=== PATIENT | female | born 1980 ===

== ENCOUNTER → 2017-07-04 | Outpatient (CLI) | payer OTHER ==
[2017-07-04 11:20] LABS: BASOPHILS % (AUTO) 1 % (0-10); EOSINOPHILS # (AUTO) 0.1 10^3/uL (0.0-0.3); EOSINOPHILS % (AUTO) 2 % (0-10); HEMATOCRIT 41 % (35-52); HEMOGLOBIN 13.7 G/DL (11.5-16.0); LYMPHOCYTES # (AUTO) 2.6 X 10^3 (1.0-4.0); LYMPHOCYTES % (AUTO) 37 % (12-44); MEAN CORPUSCULAR HEMOGLOBIN 31 PG (25-34); MEAN CORPUSCULAR HGB CONC 34 G/DL (32-36); MEAN CORPUSCULAR VOLUME 90 FL (80-99); MEAN PLATELET VOLUME 11.3 FL (7.4-10.4); MONOCYTES # (AUTO) 0.5 X 10^3 (0.0-1.0); MONOCYTES % (AUTO) 7 % (0-12); NEUTROPHILS # (AUTO) 3.9 X 10^3 (1.8-7.8); NEUTROPHILS % (AUTO) 54 % (42-75); PLATELET COUNT 261 10^3/uL (130-400); RED BLOOD COUNT 4.49 10^6/uL (4.35-5.85); RED CELL DISTRIBUTION WIDTH 13.1 % (10.0-14.5); WHITE BLOOD COUNT 7.1 10^3/uL (4.3-11.0)
[2017-07-04 11:43] LABS: ALANINE AMINOTRANSFERASE 18 U/L (0-55); ALBUMIN 4.1 GM/DL (3.2-4.5); ALKALINE PHOSPHATASE 68 U/L (40-136); BILIRUBIN,TOTAL 0.3 MG/DL (0.1-1.0); BUN/CREATININE RATIO 16; CALCIUM 9.3 MG/DL (8.5-10.1); CARBON DIOXIDE 28 MMOL/L (21-32); CHLORIDE 106 MMOL/L (98-107); CREATININE SERUM 0.62 MG/DL (0.60-1.30); GFR ESTIMATED > 60; GLUCOSE 88 MG/DL (70-105); POTASSIUM 3.9 MMOL/L (3.6-5.0); SODIUM 139 MMOL/L (135-145); TOTAL PROTEIN 7.6 GM/DL (6.4-8.2)
== END ==
LOC: LAB 11:05
PROVIDERS: ATTEND Specialist
DX: Z51.81 Encounter for therapeutic drug level monitoring (principal); Z79.899 Other long term (current) drug therapy
CPT/HCPCS: 36415; 80053; 85025

== ENCOUNTER 2018-09-14 14:25 | Outpatient (CLI) | payer OTHER ==
[~2018-09-14] VITALS: Ht 157.5 cm; Wt 82.6 kg
--- NOTE | 2018-09-14 14:10 | NUR ---
BETZAIDA PADILLA presented to unit via CART from ED, accompanied by [facility], with c/o ABD PAIN. BETZAIDA PADILLA to bed. EFHM and TOCO applied, VS taken. BETZAIDA PADILLA oriented to bed controls, call light, TV, heat, and A/C controls.
[2018-09-14 14:21] VITALS: BP 115/56
[2018-09-14] MEDS ORDERED: D5 LR IV SOLUTION 1,000 ML IV SCH (14:45)
[2018-09-14] MEDS ORDERED: fentaNYL INJECTION 100 MCG/2 ML AMP ONE (14:49)
[2018-09-14] MEDS ORDERED: D5 LR IV SOLUTION 1,000 ML IV ONE (14:56)
[2018-09-14 14:57] LABS: HEMOGLOBIN 10.3 G/DL (11.5-16.0); MEAN PLATELET VOLUME 11.1 FL (7.4-10.4); RED CELL DISTRIBUTION WIDTH 12.7 % (10.0-14.5)
[2018-09-14 14:57] LABS: BILIRUBIN,URINE NEGATIVE (NEGATIVE); CLARITY,URINE CLEAR; COLOR,URINE YELLOW; GLUCOSE, URINE (UA) NEGATIVE (NEGATIVE); KETONES,URINE NEGATIVE (NEGATIVE); LEUKOCYTE ESTERASE ,URINE NEGATIVE (NEGATIVE); NITRITE,URINE NEGATIVE (NEGATIVE); PH,URINE 8 (5-9); PROTEIN,URINE NEGATIVE (NEGATIVE); UROBILINOGEN,URINE NORMAL (NORMAL)
[2018-09-14] MEDS ORDERED: fentaNYL INJECTION 100 MCG/2 ML AMP IVP ONE (15:00)
[2018-09-14 15:17] LABS: ALANINE AMINOTRANSFERASE 20 U/L (0-55); ALBUMIN 3.5 GM/DL (3.2-4.5); ALKALINE PHOSPHATASE 70 U/L (40-136); BILIRUBIN,TOTAL 0.1 MG/DL (0.1-1.0); BUN/CREATININE RATIO 9; CALCIUM 8.8 MG/DL (8.5-10.1); CARBON DIOXIDE 20 MMOL/L (21-32); CHLORIDE 109 MMOL/L (98-107); CREATININE SERUM 0.56 MG/DL (0.60-1.30); GFR ESTIMATED > 60; GLUCOSE 96 MG/DL (70-105); POTASSIUM 3.4 MMOL/L (3.6-5.0); SODIUM 139 MMOL/L (135-145); TOTAL PROTEIN 6.6 GM/DL (6.4-8.2)
[2018-09-14 15:19] LABS: BACTERIA,URINE NEGATIVE /HPF; SQUAMOUS EPITHELIAL CELL,UR RARE /HPF
[2018-09-14 16:07] VITALS: BP 102/58
--- NOTE | 2018-09-14 16:46 | Diagnostic Imaging Report ---
INDICATION: patient with abdominal pain. FINDINGS: Limited OB sonography was performed per request. A single live intrauterine fetus is seen with a heart rate of 140 BPM. The fetus is in breech presentation. The placenta is posterior. The cervical length is 2.6 cm. There is no evidence of abruption. There are heterogeneous areas seen in the placenta which may be placental lakes and appeared stable on imaging 15 minutes later. IMPRESSION: Single live intrauterine fetus with a heart rate of 140 BPM. The fetus is in breech presentation. There is some mild inhomogeneity of the placenta which is of questionable significance. The cervical length appears mildly foreshortened at 2.6 cm. Dictated by: Dictated on workstation # [id number]
--- NOTE | 2018-09-14 17:09 | Short Stay Summary ---
HPI History of Present Illness: 37-year-old multigravida who presents at 26 weeks gestation with pelvic pressure. She reports quite a bit of pain and upon presentation by EMS she was writhing in pain. On the floor most of her pain is in the ligamentous area. She has had an uneventful care course thus far through [facility]. Source: patient, family Exam Limitations: clinical condition Date seen by provider: Sep 14, 2018 Time Seen by Provider: 06:45 Attending Physician Sagar Arthur MD PCP No,Local Physician Consult Date of Admission Home Medications Home Medications Reviewed patient Home Medication Reconciliation performed by pharmacy medication reconciliations avionics technician and/or nursing. Patients Allergies have been reviewed. Allergies Uncoded Allergies: pcn (Allergy, Unknown, 09/14/18) YQH-Zkoplr-Mpiwaa Hx Patient Social History Marrital Status: Recent Foreign Travel: No Contact w/other who traveled: No Recent Infectious Disease Expo: No Physical Abuse Screen: No Sexual Abuse: No Review of Systems (CHC) Constitutional: see HPI Reviewed Test Results Reviewed Test Results Lab Laboratory Tests Test 09/14/18 14:30 09/14/18 14:40 Range/Units Urine Color YELLOW Urine Clarity CLEAR Urine pH 8 5-9 Urine Specific [place] 1.015 L 1.016-1.022 Urine Protein NEGATIVE NEGATIVE Urine Glucose (UA) NEGATIVE NEGATIVE Urine Ketones NEGATIVE NEGATIVE Urine Nitrite NEGATIVE NEGATIVE Urine Bilirubin NEGATIVE NEGATIVE Urine Urobilinogen NORMAL NORMAL MG/DL Urine Leukocyte Esterase NEGATIVE NEGATIVE Urine RBC (Auto) NEGATIVE NEGATIVE Urine RBC NONE /HPF Urine WBC NONE /HPF Urine Squamous Epithelial Cells RARE /HPF Urine Crystals NONE /LPF Urine Bacteria NEGATIVE /HPF Urine Casts NONE /LPF Urine Mucus NEGATIVE /LPF Urine Culture Indicated NO White Blood Count 12.0 H 4.3-11.0 10^3/uL Red Blood Count 3.46 L 4.35-5.85 10^6/uL Hemoglobin 10.3 L 11.5-16.0 G/DL Hematocrit 31 L 35-52 % Mean Corpuscular Volume 91 80-99 FL Mean Corpuscular Hemoglobin 30 25-34 PG Mean Corpuscular Hemoglobin Concent 33 32-36 G/DL Red Cell Distribution Width 12.7 10.0-14.5 % Platelet Count 266 130-400 10^3/uL Mean Platelet Volume 11.1 H 7.4-10.4 FL Sodium Level 139 135-145 MMOL/L Potassium Level 3.4 L 3.6-5.0 MMOL/L Chloride Level 109 H 98-107 MMOL/L Carbon Dioxide Level 20 L 21-32 MMOL/L Anion Gap 10 5-14 MMOL/L Blood Urea Nitrogen 5 L 7-18 MG/DL Creatinine 0.56 L 0.60-1.30 MG/DL Estimat Glomerular Filtration Rate > 60 BUN/Creatinine Ratio 9 Glucose Level 96 70-105 MG/DL Calcium Level 8.8 8.5-10.1 MG/DL Corrected Calcium 9.2 8.5-10.1 MG/DL Total Bilirubin 0.1 0.1-1.0 MG/DL Aspartate Amino Transf (AST/SGOT) 16 5-34 U/L Alanine Aminotransferase (ALT/SGPT) 20 0-55 U/L Alkaline Phosphatase 70 40-136 U/L Total Protein 6.6 6.4-8.2 GM/DL Albumin 3.5 3.2-4.5 GM/DL Radiology [place], [place] NAME: BETZAIDA PADILLA [facility] REC#: [id number] PT STATUS: REG CLI : 1980 PHYSICIAN: SAGAR ARTHUR MD ADMIT DATE: 09/14/18/[facility] Draft Date of Exam:09/14/18 US LIMITED [id number] INDICATION: patient with abdominal pain. FINDINGS: Limited OB sonography was performed per request. A single live intrauterine fetus is seen with a heart rate of 140 BPM. The fetus is in breech presentation. The placenta is posterior. The cervical length is 2.6 cm. There is no evidence of abruption. There are heterogeneous areas seen in the placenta which may be placental lakes and appeared stable on imaging 15 minutes later. IMPRESSION: Single live intrauterine fetus with a heart rate of 140 BPM. The fetus is in breech presentation. There is some mild inhomogeneity of the placenta which is of questionable significance. The cervical length appears mildly foreshortened at 2.6 cm. Dictated on workstation # [id number] Dict: 09/14/18 1631 Trans: 09/14/18 1646 [id number] Interpreted by: BELINDA GARCIA MD Electronically signed by: Physical Exam-(CHC) Physical Exam Vital Signs Capillary Refill : General Appearance: mild distress Respiratory: lungs clear Cardiovascular: regular rate, rhythm Gastrointestinal: soft (She does have tenderness along the lower pelvic ligament region) Comments Cervix check by nurse revealed fingertip dilation and otherwise thick and ballotable presenting part Short Stay Diagnosis Discharge Diagnosis-Short Stay Admission Diagnosis 1. Intrauterine at 26 weeks gestation 2. Pelvic pain and this appears to be ligamentous 3. Breech presentation Final Discharge Diagnosis 1. Intrauterine at 26 weeks gestation 2. Pelvic pain and this appears to be ligamentous 3. Breech presentation Conclusion Plan At this time patient has had CBC, chem 14, catheter urinalysis performed. The laboratory and urine appear reassuring. Her ultrasound does not reveal abruption. She has received fentanyl 25 mg IV and this has relieved a lot of her pain. Was the Problem List Reviewed?: Yes Assessment/Plan Assessment/Plan Admission Status: Observation SAGAR ARTHUR MD Sep 14, 2018 17:09
[2018-09-14 18:20] VITALS: BP 105/53
--- NOTE | 2018-09-14 18:55 | NUR ---
DISCHARGE PAPERS PROVIDED AND REVIEWED WITH PT, PT VERBALIZES UNDERSTANDING AND DENIES ANY QUESTIONS AT THIS TIME. S/O AT THE BEDSIDE. PAPER SIGNED.
--- NOTE | 2018-09-14 19:00 | NUR ---
PT DISCHARGED FROM [facility] TO [facility] VIA AMBULATORY IN STABLE CONDITION ACC BY S/O.
== END 2018-09-14 19:00 | disposition home or self-care (01) ==
LOC: LDRP 14:25 → WSo 14:25
PROVIDERS: ATTEND Family Medicine
DX: O99.89 Other specified diseases and conditions complicating pregnancy, childbirth and the puerperium (principal); R10.2 Pelvic and perineal pain; O32.1XX0 Maternal care for breech presentation, not applicable or unspecified; Z3A.26 26 weeks gestation of pregnancy
CPT/HCPCS: 36415; 76815; 80053; 81000; 85027; 87088; 96361; 96374; 99213

== ENCOUNTER → 2019-05-21 | Outpatient (CLI) | payer OTHER ==
[2019-05-21 12:08] LABS: BASOPHILS % (AUTO) 1 % (0-10); EOSINOPHILS # (AUTO) 0.1 10^3/uL (0.0-0.3); EOSINOPHILS % (AUTO) 2 % (0-10); HEMATOCRIT 39 % (35-52); HEMOGLOBIN 12.6 G/DL (11.5-16.0); LYMPHOCYTES # (AUTO) 2.1 X 10^3 (1.0-4.0); LYMPHOCYTES % (AUTO) 32 % (12-44); MEAN CORPUSCULAR HEMOGLOBIN 29 PG (25-34); MEAN CORPUSCULAR HGB CONC 33 G/DL (32-36); MEAN CORPUSCULAR VOLUME 90 FL (80-99); MEAN PLATELET VOLUME 10.8 FL (7.4-10.4); MONOCYTES # (AUTO) 0.4 X 10^3 (0.0-1.0); MONOCYTES % (AUTO) 7 % (0-12); NEUTROPHILS # (AUTO) 3.7 X 10^3 (1.8-7.8); NEUTROPHILS % (AUTO) 59 % (42-75); PLATELET COUNT 263 10^3/uL (130-400); RED CELL DISTRIBUTION WIDTH 13.3 % (10.0-14.5); WHITE BLOOD COUNT 6.4 10^3/uL (4.3-11.0)
[2019-05-21 12:36] LABS: ALANINE AMINOTRANSFERASE 25 U/L (0-55); ALKALINE PHOSPHATASE 110 U/L (40-136); BILIRUBIN,TOTAL 0.2 MG/DL (0.1-1.0); BUN/CREATININE RATIO 13; CALCIUM 9.3 MG/DL (8.5-10.1); CARBON DIOXIDE 22 MMOL/L (21-32); CHLORIDE 106 MMOL/L (98-107); GFR ESTIMATED > 60; GLUCOSE 99 MG/DL (70-105); POTASSIUM 3.7 MMOL/L (3.6-5.0); SODIUM 139 MMOL/L (135-145); TOTAL PROTEIN 7.3 GM/DL (6.4-8.2)
== END ==
LOC: LAB 11:48
PROVIDERS: ATTEND Specialist
DX: Z79.899 Other long term (current) drug therapy (principal)
CPT/HCPCS: 36415; 80053; 80183; 85025

== ENCOUNTER 2020-03-03 12:03 | Inpatient (IN) | payer OTHER ==
[2020-03-03] VITALS (7 sets, daily range): BP systolic 102–144; BP diastolic 57–98
[~2020-03-03] VITALS: Ht 158 cm; Wt 73.2 kg
--- NOTE | 2020-03-03 12:34 | ED Cough/URI ---
General Chief Complaint: Respiratory Problems Stated Complaint: SOB Source: patient Exam Limitations: no limitations History of Present Illness Date Seen by Provider: Mar 03, 2020 Time Seen by Provider: 12:32 Initial Comments To ER with reports of fever and shortness of breath. She is known to have Covid and tested positive on Thanksgiving. For the past 3 days she has had cough and shortness of breath. Timing/Duration: constant Severity/Quality: dry cough Associated Symptoms: cough, fever/chills, shortness of breath Allergies and Home Medications Allergies Uncoded Allergies: pcn (Allergy, Unknown, 09/14/18) Home Medications No Active Prescriptions or Reported Meds Patient Home Medication List Home Medication List Reviewed: Yes Review of Systems Review of Systems Constitutional: see HPI, chills, fever, malaise, weakness EENTM: see HPI Respiratory: see HPI, cough, dyspnea on exertion, short of breath Genitourinary: no symptoms reported Musculoskeletal: no symptoms reported Skin: no symptoms reported Psychiatric/Neurological: No Symptoms Reported Hematologic/Lymphatic: No Symptoms Reported Past Hsmwrij-Nqakpb-Dkrcte Hx Patient Social History Alcohol Use: Denies Use Recreational Drug Use: No Smoking Status: Never a Smoker 2nd Hand Smoke Exposure: No Recent Hopitalizations: No Seasonal Allergies Seasonal Allergies: No Past Medical History Surgeries: Yes Gallbladder Respiratory: No Cardiac: No Neurological: No Hx : 5 Hx Para: 4 Hx Total # of Abortions (Sp): 1 Female Reproductive Disorders: Denies Sexually Transmitted Disease: No HIV/AIDS: No Genitourinary: No Gastrointestinal: No Musculoskeletal: No Endocrine: No HEENT: No Cancer: No Psychosocial: No Integumentary: No Blood Disorders: No Adverse Reaction/Blood Tranf: No Physical Exam Vital Signs - First Documented 03/03/20 12:15 Temp 38.3 Pulse 134 Resp 24 B/P (MAP) 144/98 (113) O2 Delivery Room Air Capillary Refill : Height: 5'2.00" Weight: 182lbs. 0.0oz. [id number]; 33.3 BMI Method: General Appearance: WD/WN, mild distress (Tachypneic with a respiratory rate near 30, oxygen saturation 92% on room air which did increase to 96% after resting) HEENT: PERRL/EOMI, normal ENT inspection Neck: non-tender, full range of motion Respiratory: no respiratory distress, no accessory muscle use, decreased breath sounds Cardiovascular: no murmur, tachycardia Gastrointestinal: normal bowel sounds, non tender, soft Extremities: normal range of motion, normal inspection Neurologic/Psychiatric: alert, normal mood/affect, oriented x 3 Skin: normal color, warm/dry Progress/Results/Core Measures Suspected Sepsis SIRS Temperature: Pulse: Respiratory Rate: Laboratory Tests 03/03/20 12:20: White Blood Count 6.4 Blood Pressure / Mean: Laboratory Tests 03/03/20 12:20: Creatinine 0.75, Platelet Count 158, Total Bilirubin 0.2 Results/Orders Lab Results Laboratory Tests Test 03/03/20 12:20 03/03/20 12:34 Range/Units White Blood Count 6.4 4.3-11.0 10^3/uL Red Blood Count 4.69 3.80-5.11 10^6/uL Hemoglobin 14.1 11.5-16.0 g/dL Hematocrit 43 35-52 % Mean Corpuscular Volume 92 80-99 fL Mean Corpuscular Hemoglobin 30 25-34 pg Mean Corpuscular Hemoglobin Concent 33 32-36 g/dL Red Cell Distribution Width 12.8 10.0-14.5 % Platelet Count 158 130-400 10^3/uL Mean Platelet Volume 11.6 9.0-12.2 fL Immature Granulocyte % (Auto) 0 % Neutrophils (%) (Auto) 58 42-75 % Lymphocytes (%) (Auto) 36 12-44 % Monocytes (%) (Auto) 5 0-12 % Eosinophils (%) (Auto) 0 0-10 % Basophils (%) (Auto) 0 0-10 % Neutrophils # (Auto) 3.7 1.8-7.8 10^3/uL Lymphocytes # (Auto) 2.3 1.0-4.0 10^3/uL Monocytes # (Auto) 0.3 0.0-1.0 10^3/uL Eosinophils # (Auto) 0.0 0.0-0.3 10^3/uL Basophils # (Auto) 0.0 0.0-0.1 10^3/uL Immature Granulocyte # (Auto) 0.0 0.0-0.1 10^3/uL D-Dimer 0.88 H 0.00-0.49 UG/ML Sodium Level 139 135-145 MMOL/L Potassium Level 3.2 L 3.6-5.0 MMOL/L Chloride Level 103 98-107 MMOL/L Carbon Dioxide Level 22 21-32 MMOL/L Anion Gap 14 5-14 MMOL/L Blood Urea Nitrogen 8 7-18 MG/DL Creatinine 0.75 0.60-1.30 MG/DL Estimat Glomerular Filtration Rate > 60 BUN/Creatinine Ratio 11 Glucose Level 122 H 70-105 MG/DL Calcium Level 8.9 8.5-10.1 MG/DL Corrected Calcium 8.9 8.5-10.1 MG/DL Total Bilirubin 0.2 0.1-1.0 MG/DL Aspartate Amino Transf (AST/SGOT) 32 5-34 U/L Alanine Aminotransferase (ALT/SGPT) 42 0-55 U/L Alkaline Phosphatase 131 40-136 U/L Total Protein 8.0 6.4-8.2 GM/DL Albumin 4.0 3.2-4.5 GM/DL Serum Test, Qualitative NEGATIVE NEGATIVE Coronavirus 2019 (MICHELLE) Positive H Negative My Orders Orders - ARIK YI REGISTERED ACCOUNT ADMINISTRATOR Cbc With Automated Diff (03/03/20 12:31) Comprehensive Metabolic Panel (03/03/20 12:31) Procalcitonin (Pct) (03/03/20 12:31) Fibrin Degradation Products (03/03/20 12:31) Chest 1 View, Ap/Pa Only (03/03/20 12:31) Ed Iv/Invasive Line Start (03/03/20 12:31) Hcg,Qualitative Serum (03/03/20 12:31) Ns Iv 500 Ml (Sodium Chloride 0.9%) (03/03/20 12:45) Ibuprofen Tablet (Motrin Tablet) (03/03/20 12:45) Ondansetron Injection (Zofran Injectio (03/03/20 12:45) Type And Screen (03/03/20 12:31) Covid 19 Inhouse Test (03/03/20 12:34) Ct Angio Chest W (03/03/20 13:03) Iohexol Injection (Omnipaque 350 Mg/Ml 1 (03/03/20 13:15) Received Contrast (Hold Metformin- Contr (03/03/20 13:15) Sodium Chloride Flush (Catheter Flush Sy (03/03/20 13:15) Ns (Ivpb) (Sodium Chloride 0.9% Ivpb Bag (03/03/20 13:15) Medications Given in ED Current Medications Medications Dose Ordered Sig/Calin Route Start Time Stop Time Status Last Admin Dose Admin Ibuprofen 800 mg ONCE ONCE PO 03/03/20 12:45 03/03/20 12:46 DC 03/03/20 12:40 800 MG Ondansetron HCl 8 mg ONCE ONCE IVP 03/03/20 12:45 03/03/20 12:46 DC 03/03/20 12:40 8 MG Vital Signs/I&O 03/03/20 03/03/20 12:15 12:40 Temp 38.3 38.3 Pulse 134 Resp 24 B/P (MAP) 144/98 (113) O2 Delivery Room Air Capillary Refill : Departure Impression Primary Impression: COVID-19 Additional Impression: Respiratory distress Disposition: ADMITTED INPATIENT Condition: Stable Admissions Decision to Admit Reason: Admit from ER (General) Decision to Admit/Date: Mar 03, 2020 Time/Decision to Admit Time: 12:33 Departure-Patient Inst. Referrals: NO,LOCAL PHYSICIAN (PCP/Family) Primary Care Physician Scripts No Active Prescriptions or Reported Meds ARIK YI APRN Mar 03, 2020 12:34
[2020-03-03 12:38] LABS: BASOPHILS % (AUTO) 0 % (0-10); EOSINOPHILS % (AUTO) 0 % (0-10); HEMATOCRIT 43 % (35-52); HEMOGLOBIN 14.1 g/dL (11.5-16.0); LYMPHOCYTES # (AUTO) 2.3 10^3/uL (1.0-4.0); LYMPHOCYTES % (AUTO) 36 % (12-44); MEAN CORPUSCULAR HEMOGLOBIN 30 pg (25-34); MEAN CORPUSCULAR HGB CONC 33 g/dL (32-36); MEAN CORPUSCULAR VOLUME 92 fL (80-99); MEAN PLATELET VOLUME 11.6 fL (9.0-12.2); MONOCYTES # (AUTO) 0.3 10^3/uL (0.0-1.0); MONOCYTES % (AUTO) 5 % (0-12); NEUTROPHILS # (AUTO) 3.7 10^3/uL (1.8-7.8); NEUTROPHILS % (AUTO) 58 % (42-75); PLATELET COUNT 158 10^3/uL (130-400); WHITE BLOOD COUNT 6.4 10^3/uL (4.3-11.0)
[2020-03-03 12:44] LABS: CHLORIDE 103 MMOL/L (98-107); POTASSIUM 3.2 MMOL/L (3.6-5.0); SODIUM 139 MMOL/L (135-145)
[2020-03-03 12:45] LABS: CALCIUM 8.9 MG/DL (8.5-10.1)
[2020-03-03] MEDS ORDERED: ONDANSETRON 4 MG/2 ML (SDV) Z0FRAN IVP ONE (12:45)
[2020-03-03] MEDS ORDERED: IBUPROFEN 800 MG (MOTRIN) TAB PO ONE (12:45)
[2020-03-03] MEDS ORDERED: NS IV 500 ML 500 ML IV SCH (12:45)
[2020-03-03 12:46] LABS: GLUCOSE 122 MG/DL (70-105)
[2020-03-03 12:47] LABS: CARBON DIOXIDE 22 MMOL/L (21-32)
[2020-03-03 12:48] LABS: BILIRUBIN,TOTAL 0.2 MG/DL (0.1-1.0)
[2020-03-03 12:50] LABS: ALKALINE PHOSPHATASE 131 U/L (40-136); CREATININE SERUM 0.75 MG/DL (0.60-1.30); GFR ESTIMATED > 60
[2020-03-03 12:51] LABS: BUN/CREATININE RATIO 11
[2020-03-03 12:53] LABS: ALANINE AMINOTRANSFERASE 42 U/L (0-55)
--- NOTE | 2020-03-03 12:58 | Diagnostic Imaging Report ---
INDICATION: Cough. TECHNIQUE: Single view chest 12:54 PM. CORRELATION STUDY: None FINDINGS: Limited depth of inspiration. Given this, the heart size, mediastinum and vasculature within normal limits. Patchy infiltrate-like density in the left lung base is present. IMPRESSION: 1. Patchy infiltrate of the left lung base suspect for basilar pneumonia. Dictated by: Dictated on workstation # [id number]
[2020-03-03] MEDS ORDERED: CATHETER FLUSH 10 ML SYR IV PRN ×2 (13:15→14:45)
[2020-03-03] MEDS ORDERED: HOLD METFORMIN - RECEIVED CONTRAST 20 ML VIAL IV SCH (13:15)
[2020-03-03] MEDS ORDERED: NS 100 ML (IVPB) BAG IV ONE (13:15)
[2020-03-03] MEDS ORDERED: IOHEXOL 350 MG/ML 100 ML (OMNIPAQUE 350) VIAL IV ONE (13:15)
--- NOTE | 2020-03-03 14:10 | Diagnostic Imaging Report ---
EXAMINATION: CT angiography of the chest. TECHNIQUE: Contrast enhanced thin section helical images were obtained through the chest with intravenous contrast timed for the optimal opacification of the arterial structures per CTA protocol. Post-processing, reconstructions and interpretation of angiographic images of the vessels was performed. 3D MIP reconstructions were performed and reviewed. All CT scans use one or more of the following dose optimizing techniques: automated exposure control, MA and/or KvP adjustment based on a patient size and exam type, or iterative reconstruction. HISTORY: Cough, recent COVID-19. COMPARISON: None available. FINDINGS: There is no pulmonary embolism. There are multifocal areas of groundglass and consolidation most pronounced in the lower lobes but also present in the upper lobes. No pleural effusion. No pneumothorax. No suspicious nodules. There is no axillary or supraclavicular lymphadenopathy. There is no mediastinal lymphadenopathy. Heart size is normal. There are no coronary artery calcifications. No pericardial effusion. Aorta is normal in caliber. Limited views of the upper abdomen show pneumobilia and absent gallbladder. There are no suspicious osseous lesions. IMPRESSION: 1. No pulmonary embolism. 2. CT findings of pneumonia consistent with COVID-19 which are moderate in severity. 3. Pneumobilia, likely related to prior surgery. Dictated by: Dictated on workstation # [id number]
[2020-03-03] MEDS ORDERED: LACTATED RINGERS 1,000 ML IV SCH (14:45)
[2020-03-03] MEDS ORDERED: ENOXAPARIN 40 MG/0.4 ML (LOVENOX) SYR SC SCH (15:00)
--- NOTE | 2020-03-03 15:08 | History & Physical-Hospitalist ---
History of Present Illness HPI/Chief Complaint Pt is a 39yoCF with no known PMH who presented to the ER due to SOB. She was diagnosed with COVID on 02/23 and here symptoms progressed over the last three days with worsening SOB. On arrival she was 92% on room air but per ER she had significant increase in work of breath. She states other than her cough and SOB she has done well. No loss of taste or smell, nausea/vomiting, abd pain, diarrhea, constipation. She reports feeling better since arrival. She was consented for convalescent plasma in the ER. Source: patient Exam Limitations: language barrier Date Seen 03/03/20 Time Seen by a Provider: 15:11 Attending Physician Quynh Bob MD PCP No,Local Physician Referring Physician Date of Admission Mar 03, 2020 at 12:55 Home Medications & Allergies Home Medications Reviewed patient Home Medication Reconciliation performed by pharmacy medication reconciliations camera repair technician and/or nursing. Patients Allergies have been reviewed. Allergies Allergies Uncoded Allergies pcn ( Allergy, Unknown, 09/14/18) Past Fbxkdye-Ifwsxb-Vchuyp Hx Past Med/Social Hx: Reviewed Nursing Past Med/Soc Hx Patient Social History Alcohol Use: Denies Use Recreational Drug Use: No Smoking Status: Never a Smoker 2nd Hand Smoke Exposure: No Recent Foreign Travel: No Contact w/other who traveled: No Recent Hopitalizations: No Recent Infectious Disease Expo: No Seasonal Allergies Seasonal Allergies: No Past Medical History Surgeries: Gallbladder Hx : 5 Hx Para: 4 Hx Total # of Abortions(Spont): 1 Sexually Transmitted Disease: No HIV/AIDS: No Female Reproductive Disorders: Denies History of Blood Disorders: No Adverse Reaction to Blood Carter: No Family History Reviewed Nursing Family Hx No Pertinent Family Hx Review of Systems Constitutional: fever, malaise Respiratory: cough, dyspnea on exertion, short of breath Cardiovascular: No chest pain, No palpitations Gastrointestinal: No abdominal pain, No constipation, No diarrhea, No nausea, No vomiting Genitourinary: no symptoms reported Musculoskeletal: no symptoms reported Skin: no symptoms reported Psychiatric/Neurological: No Symptoms Reported Physical Exam Physical Exam Vital Signs Vital Signs - First Documented 03/03/20 03/03/20 12:15 14:20 Temp 38.3 Pulse 134 Resp 24 B/P (MAP) 144/98 (113) Pulse Ox 95 O2 Delivery Room Air Capillary Refill : Less Than 3 Seconds Height, Weight, BMI Height: 5'2.00" Weight: 182lbs. 0.0oz. [id number]; 32.00 BMI Method: General Appearance: No Apparent Distress, WD/WN HEENT: PERRL/EOMI, Moist Mucous Membranes; No Scleral Icterus (L), No Scleral Icterus (R) Neck: Normal Inspection, Supple Respiratory: Lungs Clear, No Accessory Muscle Use, No Respiratory Distress Cardiovascular: Regular Rate, Rhythm, No Murmur Gastrointestinal: Normal Bowel Sounds, Non Tender, Soft Extremity: Normal Capillary Refill, No Calf Tenderness, No Pedal Edema Neurologic/Psychiatric: Alert, Oriented x3, Normal Mood/Affect Results Results/Procedures Labs Laboratory Tests 03/03/20 12:20 Patient resulted labs reviewed. Imaging: Reviewed Imaging Report Assessment/Plan Admission Diagnosis COVID19 with hypoxia Admission Status: Inpatient Order (span 2 midnights) Reason for Inpatient Admission: see below Assessment and Plan COVID19 with hypoxia Respiratory distress, improved Decadron Convalescent plasma Will start remdesivir negative procal, no indication for abx Lovenox MAT protocol DVT ppx: Lovenox Diagnosis/Problems Diagnosis/Problems (1) COVID-19 Status: Acute (2) Respiratory distress Status: Acute QUYNH BOB MD Mar 03, 2020 15:08
--- NOTE | 2020-03-03 15:33 | NUR ---
SPOKE WITH THE PT (CALLED THE ROOM PHONE) TO COMPLETE THE MED REC PT DENIES TAKING ANY PRESCRIPTION OR OTC MEDICATIONS
[2020-03-03] MEDS ORDERED: BENZONATATE 100 MG (TESSALON) CAPSULE PO PRN (15:45)
[2020-03-03] MEDS ORDERED: ACETAMINOPHEN 325 MG TABLET PO PRN (15:45)
[2020-03-03] MEDS ORDERED: ONDANSETRON 4 MG/2 ML (SDV) Z0FRAN IV PRN (15:45)
[2020-03-03] MEDS ORDERED: MELATONIN 3 MG TABLET PO PRN (15:45)
[2020-03-03] MEDS ORDERED: MILK OF MAGNESIA 400 MG/5 ML 30 ML UDC PO PRN (15:45)
[2020-03-03] MEDS ORDERED: guaiFENesin/DM (ROBITUSSIN DM) 10 ML UDC PO PRN (15:45)
[2020-03-03] MEDS ORDERED: ANTACID SUSP 30 ML UDC (MYLANTA) PO PRN (15:45)
[2020-03-03] MEDS ORDERED: REMDESIVIR INJ 200 MG in NS (IVPB) 210 ML IV NR (16:30)
[2020-03-03] MEDS ORDERED: NS IV 500 ML 500 ML ONE (17:42)
[2020-03-03] MEDS: ENOXAPARIN 40 MG/0.4 ML (LOVENOX) SYR SC SCH (18:02)
[2020-03-03] MEDS: dexAMETHasone 6 MG TAB (DECADRON) PO SCH (18:02)
[2020-03-03] MEDS: RT-ALBUTEROL INHALER HFA (VENTOLIN HFA) 18 GM IH SCH (22:09)
[2020-03-04] MEDS: RT-ALBUTEROL INHALER HFA (VENTOLIN HFA) 18 GM IH SCH ×4 (03:03→21:15)
[2020-03-04 07:58] LABS: BASOPHILS % (AUTO) 0 % (0-10); EOSINOPHILS % (AUTO) 0 % (0-10); HEMATOCRIT 39 % (35-52); HEMOGLOBIN 12.8 g/dL (11.5-16.0); LYMPHOCYTES # (AUTO) 1.1 10^3/uL (1.0-4.0); LYMPHOCYTES % (AUTO) 23 % (12-44); MEAN CORPUSCULAR HEMOGLOBIN 30 pg (25-34); MEAN CORPUSCULAR HGB CONC 33 g/dL (32-36); MEAN CORPUSCULAR VOLUME 91 fL (80-99); MEAN PLATELET VOLUME 12.1 fL (9.0-12.2); MONOCYTES # (AUTO) 0.2 10^3/uL (0.0-1.0); MONOCYTES % (AUTO) 4 % (0-12); NEUTROPHILS # (AUTO) 3.6 10^3/uL (1.8-7.8); NEUTROPHILS % (AUTO) 73 % (42-75); PLATELET COUNT 162 10^3/uL (130-400)
[2020-03-04 08:10] VITALS: BP 120/72
[2020-03-04 08:15] LABS: ALANINE AMINOTRANSFERASE 47 U/L (0-55); ALKALINE PHOSPHATASE 145 U/L (40-136); BILIRUBIN,TOTAL 0.2 MG/DL (0.1-1.0); BUN/CREATININE RATIO 11; CALCIUM 8.5 MG/DL (8.5-10.1); CARBON DIOXIDE 20 MMOL/L (21-32); CHLORIDE 104 MMOL/L (98-107); CREATININE SERUM 0.64 MG/DL (0.60-1.30); GFR ESTIMATED > 60; GLUCOSE 110 MG/DL (70-105); POTASSIUM 3.6 MMOL/L (3.6-5.0); SODIUM 139 MMOL/L (135-145); TOTAL PROTEIN 7.4 GM/DL (6.4-8.2)
[2020-03-04] MEDS: dexAMETHasone 6 MG TAB (DECADRON) PO SCH (08:29)
--- NOTE | 2020-03-04 12:12 | Progress Note - Hospitalist ---
Subjective HPI/CC On Admission Date Seen by Provider: Mar 04, 2020 Time Seen by Provider: 12:11 Pt is a 39yoCF with no known PMH who presented to the ER due to SOB. She was diagnosed with COVID on 02/23 and here symptoms progressed over the last three days with worsening SOB. On arrival she was 92% on room air but per ER she had significant increase in work of breath. She states other than her cough and SOB she has done well. No loss of taste or smell, nausea/vomiting, abd pain, diarrhea, constipation. She reports feeling better since arrival. She was consented for convalescent plasma in the ER. Subjective/Events-last exam Pt reports feeling much better. Cough and SOB improved. Less dizzy with ambulation. When asked how her family was doing she became tearful and told me about her 4 kids. She is hopeful to DC soon to see them. Objective Exam Vital Signs Vital Signs Date Time Temp Pulse Resp B/P (MAP) Pulse Ox O2 Delivery O2 Flow Rate FiO2 03/04/20 08:50 94 Room Air 03/04/20 08:10 36.6 87 20 120/72 (88) Capillary Refill : Less Than 3 Seconds General Appearance: No Apparent Distress, WD/WN Respiratory: Lungs Clear, No Respiratory Distress Cardiovascular: Regular Rate, Rhythm, No Murmur Gastrointestinal: Normal Bowel Sounds, Non Tender, Soft Neurologic/Psychiatric: Alert, Oriented x3 Results/Procedures Lab Laboratory Tests 03/03/20 12:20 03/04/20 07:21 Patient resulted labs reviewed. Imaging: Reviewed Imaging Report Assessment/Plan Assessment and Plan Assess & Plan/Chief Complaint COVID19 with hypoxia Respiratory distress, improved Decadron s/p 1 unit Convalescent plasma Continue remdesivir negative procal, no indication for abx Lovenox MAT protocol DVT ppx: Lovenox Diagnosis/Problems Diagnosis/Problems (1) COVID-19 Status: Acute (2) Respiratory distress Status: Acute Clinical Quality Measures DVT/VTE Risk/Contraindication: Risk Factor Score Per Nursin RFS Level Per Nursing on Admit: 1=Low/No VTE PPX QUYNH CHAUHAN MD Mar 04, 2020 12:12
[2020-03-04] MEDS: REMDESIVIR INJ 100 MG in NS (IVPB) 230 ML IV SCH (15:12)
[2020-03-04] MEDS: ENOXAPARIN 40 MG/0.4 ML (LOVENOX) SYR SC SCH (15:13)
[2020-03-04] MEDS ORDERED: REMDESIVIR INJ 100 MG in NS (IVPB) 230 ML IV SCH (15:30)
[2020-03-04 20:43] VITALS: BP 114/59
[2020-03-05] MEDS: RT-ALBUTEROL INHALER HFA (VENTOLIN HFA) 18 GM IH SCH ×3 (02:21→14:35)
[2020-03-05 07:27] VITALS: BP 103/60
[2020-03-05] MEDS: dexAMETHasone 6 MG TAB (DECADRON) PO SCH (08:33)
[2020-03-05 08:34] LABS: ALANINE AMINOTRANSFERASE 42 U/L (0-55); ALBUMIN 3.7 GM/DL (3.2-4.5); ALKALINE PHOSPHATASE 111 U/L (40-136); BILIRUBIN,TOTAL 0.2 MG/DL (0.1-1.0); BUN/CREATININE RATIO 19; CALCIUM 8.4 MG/DL (8.5-10.1); CARBON DIOXIDE 23 MMOL/L (21-32); CHLORIDE 107 MMOL/L (98-107); CREATININE SERUM 0.62 MG/DL (0.60-1.30); GFR ESTIMATED > 60; GLUCOSE 94 MG/DL (70-105); POTASSIUM 3.3 MMOL/L (3.6-5.0); SODIUM 143 MMOL/L (135-145); TOTAL PROTEIN 6.7 GM/DL (6.4-8.2)
[2020-03-05] MEDS ORDERED: DEXA6TAB PO (12:34)
--- NOTE | 2020-03-05 12:35 | Discharge Inst-Simple/Standard ---
Discharge Inst-Standard Patient Instructions/Follow Up Plan of Care/Instructions/FU: Please continue to take your medications as written. Please follow up with your primary care doctor to follow up this hospital stay. Please continue to follow the Health Department guidelines for isolation at home for COVID to help prevent the spread. Activity as Tolerated: Yes Discharge Diet: No Restrictions Return to The Hospital For: Chest pain, shortness of breath, fever, confusion, if you feel you are getting worse. QUYNH CHAUHAN MD Mar 05, 2020 12:35
[2020-03-05] MEDS: ENOXAPARIN 40 MG/0.4 ML (LOVENOX) SYR SC SCH (15:13)
[2020-03-05] MEDS: REMDESIVIR INJ 100 MG in NS (IVPB) 230 ML IV SCH (16:11)
[2020-03-05 17:00] VITALS: BP 103/60
--- NOTE | 2020-03-05 17:00 | NUR ---
BETZAIDA PADILLA Maurice demonstrates understanding of discharge instructions and accurately returns instructions upon questioning. Copy of Post-Discharge Instructions and Medication Discharge Instructions given to patient. BETZAIDA PADILLA Maurice is able to manage continuing needs after discharge. Patients belongings returned to patient. Skin dry and intact; no breakdown noted. Patient discharged from [facility] on 03/05/20 at 1700. BETZAIDA PADILLA Maurice left floor via wheelchair, accompanied by staff.
== END 2020-03-05 17:00 | disposition home or self-care (01) | DRG 179 ==
LOC: EDUNIT# 12:03 → ER 12:04 → 4TH 12:55
PROVIDERS: ADMIT Family Medicine; ATTEND Family Medicine
PROC: XW13325 Transfusion of Convalescent Plasma (Nonautologous) into Peripheral Vein, Percutaneous Approach, New Technology Group 5 (ICD-10-PCS; principal; 2020-03-03)
PROC: XW033E5 Introduction of Remdesivir Anti-infective into Peripheral Vein, Percutaneous Approach, New Technology Group 5 (ICD-10-PCS; 2020-03-03)
DX: U07.1 COVID-19 (principal); R06.03 Acute respiratory distress; R09.02 Hypoxemia
CPT/HCPCS: 36415; 71045; 71275; 80053; 84145; 84703; 85025; 85379; 86141; 86850; 86900; 86901; 87635; 94640; 94760

== ENCOUNTER 2020-07-12 01:43 | Emergency (ER) | payer OTHER ==
[~2020-07-12] VITALS: Ht 154.5 cm; Wt 81.6 kg
[~2020-07-12 01:43] MED LIST: DEXA6TAB PO
[2020-07-12] MEDS ORDERED: KETOROLAC 30 MG/ML VIAL IVP STA (01:53)
[2020-07-12] MEDS ORDERED: NS IV 1000 ML 1,000 ML IV STA (01:53)
[2020-07-12] MEDS ORDERED: ONDANSETRON 4 MG/2 ML (SDV) Z0FRAN IVP ONE (02:00)
[2020-07-12] MEDS ORDERED: LORazepam INJ 2 MG/ML (ATIVAN) VIAL IVP ONE (02:00)
[2020-07-12] MEDS ORDERED: ASPIRIN 81 MG CHEW (CHILDREN'S ASA) PO ONE (02:00)
--- NOTE | 2020-07-12 02:06 | ED Chest Pain ---
General Stated Complaint: CHEST PAIN Source: patient Exam Limitations: no limitations History of Present Illness Date Seen by Provider: Jul 12, 2020 Time Seen by Provider: 01:46 Initial Comments Here with report of a variety of complaints including central chest pain, nausea, shaking, body aches and overall not feeling well. She did receive her second dose vaccine yesterday morning at 8 AM. She has also had COVID-19 in January of last year. States chest pain is central and aching. She has had dry heaves. She is quite anxious. States that many of the symptoms were the same as when she had Covid infection and did require hospitalization for couple of days. Not currently short of breath or sweating. She took 1 Tylenol at 9 PM and this did not help significantly. She has not taken any other medicine. Timing/Duration: 4-6 hours, constant Severity/Quality: moderate Location: central Radiation: no radiation Activities at Onset: none Prior CP/Workup: no prior cardiac workup ASA po AMUSEMENT RIDE INSPECTOR: No NTG SL AMUSEMENT RIDE INSPECTOR: No Associated Symptoms: No abdominal pain, No back pain, No diaphoresis; fever/chills, heartburn, nausea/vomiting; No shortness of breath, No weakness Allergies and Home Medications Allergies Coded Allergies: Penicillins (Verified Allergy, Unknown, 07/12/20) Home Medications Dexamethasone 6 Mg Tablet, 6 MG PO DAILY Prescribed by: QUYNH CHAUHAN on 03/05/20 1234 Patient Home Medication List Home Medication List Reviewed: Yes Review of Systems Review of Systems Constitutional: see HPI EENTM: No Symptoms Reported Respiratory: Cough; Denies Shortness of Air Cardiovascular: Chest Pain; Denies Edema Gastrointestinal: Denies Diarrhea; Nausea, Vomiting Genitourinary: No Symptoms Reported Musculoskeletal: no symptoms reported Psychiatric/Neurological: Anxiety, Weakness All Other Systems Reviewed Negative Unless Noted: Yes Past Wwztbdn-Uyqgab-Pmslsm Hx Past Med/Social Hx: Reviewed Nursing Past Med/Soc Hx Patient Social History Alcohol Use: Denies Use Smoking Status: Never a Smoker 2nd Hand Smoke Exposure: No Recent Hopitalizations: No Seasonal Allergies Seasonal Allergies: No Past Medical History Surgeries: Yes Gallbladder Respiratory: No Cardiac: No Neurological: No Female Reproductive Disorders: Denies Sexually Transmitted Disease: No HIV/AIDS: No Genitourinary: No Gastrointestinal: No Musculoskeletal: No Endocrine: No HEENT: No Cancer: No Psychosocial: No Integumentary: No Blood Disorders: No Adverse Reaction/Blood Tranf: No Family Medical History Reviewed Nursing Family Hx No Pertinent Family Hx Physical Exam Vital Signs Vital Signs - First Documented 07/12/20 01:50 Temp 37.2 Pulse 82 Resp 26 B/P (MAP) 108/72 (84) Pulse Ox 97 O2 Delivery Room Air Capillary Refill : Height, Weight, BMI Height: 5'2.00" Weight: 182lbs. 0.0oz. 82.870035hz; 32.20 BMI Method: General Appearance: Anxious, Moderate Distress HEENT: PERRL/EOMI, Pharynx Normal Neck: Non Tender, Supple Respiratory: Lungs Clear, Normal Breath Sounds Cardiovascular: Regular Rate, Rhythm, No Murmur Gastrointestinal: Non Tender, Soft Extremity: Normal Range of Motion, Non Tender Neurologic/Psychiatric: Alert, Oriented x3, No Motor/Sensory Deficits Skin: Normal Color, Warm/Dry Progress/Results/Core Measures Results/Orders Lab Results Laboratory Tests Test 07/12/20 02:07 Range/Units White Blood Count 13.8 H 4.3-11.0 10^3/uL Red Blood Count 4.22 3.80-5.11 10^6/uL Hemoglobin 12.6 11.5-16.0 g/dL Hematocrit 39 35-52 % Mean Corpuscular Volume 93 80-99 fL Mean Corpuscular Hemoglobin 30 25-34 pg Mean Corpuscular Hemoglobin Concent 32 32-36 g/dL Red Cell Distribution Width 12.5 10.0-14.5 % Platelet Count 281 130-400 10^3/uL Mean Platelet Volume 10.8 9.0-12.2 fL Immature Granulocyte % (Auto) 0 % Neutrophils (%) (Auto) 84 H 42-75 % Lymphocytes (%) (Auto) 10 L 12-44 % Monocytes (%) (Auto) 5 0-12 % Eosinophils (%) (Auto) 0 0-10 % Basophils (%) (Auto) 0 0-10 % Neutrophils # (Auto) 11.7 H 1.8-7.8 10^3/uL Lymphocytes # (Auto) 1.4 1.0-4.0 10^3/uL Monocytes # (Auto) 0.7 0.0-1.0 10^3/uL Eosinophils # (Auto) 0.1 0.0-0.3 10^3/uL Basophils # (Auto) 0.1 0.0-0.1 10^3/uL Immature Granulocyte # (Auto) 0.0 0.0-0.1 10^3/uL Prothrombin Time 12.9 12.2-14.7 SEC INR Comment 0.9 0.8-1.4 Activated Partial Thromboplast Time 29 24-35 SEC D-Dimer < 0.27 0.00-0.49 UG/ML Sodium Level 137 135-145 MMOL/L Potassium Level 3.6 3.6-5.0 MMOL/L Chloride Level 104 98-107 MMOL/L Carbon Dioxide Level 21 21-32 MMOL/L Anion Gap 12 5-14 MMOL/L Blood Urea Nitrogen 10 7-18 MG/DL Creatinine 0.71 0.60-1.30 MG/DL Estimat Glomerular Filtration Rate > 60 BUN/Creatinine Ratio 14 Glucose Level 127 H 70-105 MG/DL Calcium Level 9.2 8.5-10.1 MG/DL Corrected Calcium 9.1 8.5-10.1 MG/DL Magnesium Level 1.6 1.6-2.4 MG/DL Total Bilirubin 0.4 0.1-1.0 MG/DL Aspartate Amino Transf (AST/SGOT) 27 5-34 U/L Alanine Aminotransferase (ALT/SGPT) 40 0-55 U/L Alkaline Phosphatase 98 40-136 U/L Myoglobin 37.6 10.0-92.0 NG/ML Troponin I < 0.028 <0.028 NG/ML Total Protein 7.6 6.4-8.2 GM/DL Albumin 4.1 3.2-4.5 GM/DL My Orders Orders - MELO CRUZ MD Cbc With Automated Diff (07/12/20:53) Magnesium (07/12/20:53) Chest 1 View, Ap/Pa Only (07/12/20:53) Ekg Tracing (07/12/20:53) Comprehensive Metabolic Panel (07/12/20:53) Myoglobin Serum (07/12/20:53) Protime With Inr (07/12/20:53) Partial Thromboplastin Time (07/12/20:53) O2 (07/12/20:53) Monitor-Rhythm Ecg Trace Only (4/14/21 01:53) Lipid Panel (07/13/20 06:00) Ed Iv/Invasive Line Start (07/12/20 01:53) Fibrin Degradation Products (07/12/20 01:53) Troponin I (07/12/20 01:53) Aspirin Chewable Tablet (Baby Aspirin Ch (07/12/20 02:00) Ondansetron Injection (Zofran Injectio (07/12/20 02:00) Ns Iv 1000 Ml (Sodium Chloride 0.9%) (07/12/20 01:53) Ketorolac Injection (Toradol Injection) (07/12/20 01:53) Lorazepam Injection (Ativan Injection) (07/12/20 02:00) Medications Given in ED Current Medications Medications Dose Ordered Sig/Calin Route Start Time Stop Time Status Last Admin Dose Admin Aspirin 324 mg ONCE ONCE PO 07/12/20 02:00 07/12/20 02:01 DC 07/12/20 02:00 324 MG Lorazepam 0.5 mg ONCE ONCE IVP 07/12/20 02:00 07/12/20 02:01 DC 07/12/20 02:11 0.5 MG Ondansetron HCl 4 mg ONCE ONCE IVP 07/12/20 02:00 07/12/20 02:01 DC 07/12/20 02:11 4 MG Vital Signs/I&O 07/12/20 07/12/20 01:50 01:50 Temp 37.2 Pulse 82 Resp 26 B/P (MAP) 108/72 (84) Pulse Ox 97 O2 Delivery Room Air Room Air Progress Progress Note : Progress Note Seen and evaluated. We will initiate chest pain protocol due to report of chest pain. Symptoms otherwise look like post vaccination syndrome typical of COVID- 19 vaccination. Patient is quite anxious. We will initiate normal saline 1 L bolus, Toradol 30 mg IV, ASA 324 mg p.o. and Ativan 0.5 mg IV. Zofran 4 mg IV also given. Monitor patient. 0303: Overall doing much better. No significant findings on labs or x-ray. EKG is normal as well. I do believe this is post vaccination reaction typical of COVID-19 vaccination. This was discussed with patient and family. Discharged home with return precautions. Patient and family verbalized understanding of instructions and agreement with plan. Patient is appreciative and thankful that she is feeling better now. Initial ECG Impression Date: Jul 12, 2020 Initial ECG Impression Time: 01:51 Initial ECG Rate: 88 Initial ECG Rhythm: Normal Sinus Initial ECG Impression: Normal Initial ECG Comparisson: No Previous ECG Available Comment Normal sinus rhythm with normal axis. No evidence of ST elevation [place]. No previous available for comparison. Interpreted by me. 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 Decision time for Depature: 03:05 Referrals: NO,LOCAL PHYSICIAN (PCP/Family) Primary Care Physician Patient Instructions: COVID-19 After You Have Been Vaccinated, COVID-19 Vaccine (mRNA) Moderna FDA Fact Sheet, Chest Pain (DC) Add. Discharge Instructions: Drink plenty of fluids and get plenty of rest. You may take ibuprofen 600 mg (3 tablets) every 8 hours as needed for fever or pain. You may take Tylenol/acetaminophen 1000 mg (2 tablets) every 8 hours as needed for fever or pain. You may take these together or alternate. You will need to rest for the next day or 2 and then you may return to work. Return for worse pain, fever, vomiting, weakness, breathing problems or other concerns as needed. The post vaccination syndrome usually only last for 24 to 48 hours and then you you should return to normal. Work/School Note: Work Release Form Date Seen in the Emergency Department: Jul 12, 2020 Return to Work: Jul 14, 2020 Restrictions: No Restrictions Copy Copies To 1: LYN LORENZO MD, TIMOTHY D MD Jul 12, 2020 02:06
[2020-07-12 02:35] LABS: BASOPHILS # (AUTO) 0.1 10^3/uL (0.0-0.1); BASOPHILS % (AUTO) 0 % (0-10); EOSINOPHILS # (AUTO) 0.1 10^3/uL (0.0-0.3); EOSINOPHILS % (AUTO) 0 % (0-10); HEMATOCRIT 39 % (35-52); HEMOGLOBIN 12.6 g/dL (11.5-16.0); LYMPHOCYTES # (AUTO) 1.4 10^3/uL (1.0-4.0); LYMPHOCYTES % (AUTO) 10 % (12-44); MEAN CORPUSCULAR HEMOGLOBIN 30 pg (25-34); MEAN CORPUSCULAR HGB CONC 32 g/dL (32-36); MEAN CORPUSCULAR VOLUME 93 fL (80-99); MEAN PLATELET VOLUME 10.8 fL (9.0-12.2); MONOCYTES # (AUTO) 0.7 10^3/uL (0.0-1.0); MONOCYTES % (AUTO) 5 % (0-12); NEUTROPHILS # (AUTO) 11.7 10^3/uL (1.8-7.8); NEUTROPHILS % (AUTO) 84 % (42-75); PLATELET COUNT 281 10^3/uL (130-400); WHITE BLOOD COUNT 13.8 10^3/uL (4.3-11.0)
[2020-07-12 02:36] LABS: ALBUMIN 4.1 GM/DL (3.2-4.5); INR 0.9 (0.8-1.4); PROTHROMBIN TIME PATIENT 12.9 SEC (12.2-14.7)
[2020-07-12 02:37] LABS: CHLORIDE 104 MMOL/L (98-107); POTASSIUM 3.6 MMOL/L (3.6-5.0); SODIUM 137 MMOL/L (135-145)
[2020-07-12 02:38] LABS: CALCIUM 9.2 MG/DL (8.5-10.1)
[2020-07-12 02:39] LABS: GLUCOSE 127 MG/DL (70-105); TOTAL PROTEIN 7.6 GM/DL (6.4-8.2)
[2020-07-12 02:40] LABS: CARBON DIOXIDE 21 MMOL/L (21-32)
[2020-07-12 02:41] LABS: BILIRUBIN,TOTAL 0.4 MG/DL (0.1-1.0)
[2020-07-12 02:42] LABS: ALKALINE PHOSPHATASE 98 U/L (40-136)
[2020-07-12 02:43] LABS: CREATININE SERUM 0.71 MG/DL (0.60-1.30); GFR ESTIMATED > 60
[2020-07-12 02:44] LABS: BUN/CREATININE RATIO 14
[2020-07-12 02:45] LABS: ALANINE AMINOTRANSFERASE 40 U/L (0-55); MAGNESIUM 1.6 MG/DL (1.6-2.4)
[2020-07-12 03:10] VITALS: BP 101/63
--- NOTE | 2020-07-12 07:32 | Diagnostic Imaging Report ---
INDICATION: Chest pain Upright portable chest shows normal heart size and vascularity. The lungs are clear. There is no effusion or pneumothorax. There is no bony abnormality. IMPRESSION: Normal portable chest with no change from 03/03/2020. Dictated by: Dictated on workstation # [id number]
== END 2020-07-12 03:17 | disposition home or self-care (01) ==
LOC: EDUNIT# 01:43 → ER 01:45
DX: T88.1XXA Other complications following immunization, not elsewhere classified, initial encounter (principal); Z88.0 Allergy status to penicillin
CPT/HCPCS: 36415; 71045; 80053; 83735; 83874; 84484; 85025; 85379; 85610; 85730; 93005; 93041

== ENCOUNTER 2021-03-25 20:09 | Emergency (ER) | payer OTHER | END 2021-03-25 20:30 | disposition left against medical advice (07) | LOC: EDUNIT# 20:09 → ER 20:11 | DX: R11.10 Vomiting, unspecified (principal); R19.7 Diarrhea, unspecified ==

== ENCOUNTER 2021-06-16 16:16 | Emergency (ER) | payer OTHER ==
[~2021-06-16] VITALS: Ht 157.5 cm; Wt 82.1 kg
[2021-06-16] MEDS ORDERED: KETOROLAC 30 MG/ML VIAL IVP ONE (16:45)
[2021-06-16] MEDS ORDERED: ONDANSETRON 4 MG/2 ML (SDV) Z0FRAN IVP ONE (16:45)
--- NOTE | 2021-06-16 16:55 | ED Abdominal Pain ---
General Chief Complaint: Abdominal/GI Problems Stated Complaint: PELVIC PAIN, R LEG NUMBNESS Nursing Triage Note: PT AMB TO FT 1 ALONGSIDE . PT SPEAKS KAZAKH, OFFERED LANGUAGE LINE SERIVES, PT DENIED REQUESTED FOR TO INTERPRET. PT C/O RLQ PAIN THAT RADIATES TO HER BACK AND NAUSEA SX 0300 THIS AM. PT TO [facility] TRAY LINE WORKER, ADVISED TO GO TO ED FOR FURTHER TX AND EVALUATION. PT A&OX4. Source of Information: Patient Exam Limitations: Language Barrier History of Present Illness Date Seen by Provider: Jun 16, 2021 Time Seen by Provider: 16:37 Initial Comments This is a 40 yo female who presented to the ER via POV with c/o suprapubic abdominal pain that radiates around to her low back and down her right leg. States symptoms started around 0300 in the morning. Describes as sharp stabbing pain. Allergies and Home Medications Allergies Coded Allergies: Penicillins (Verified Allergy, Unknown, 07/12/20) Patient Home Medication List Dexamethasone (Dexamethasone) 6 Mg Tablet, 6 MG PO DAILY Prescribed by: QUYNH CHAUHAN on 03/05/20 1234 Past Eldrgqo-Jxjhev-Kwwodn Hx Patient Social History Tobacco Use?: No Use of E-Cig and/or Vaping dev: No Substance use?: No Alcohol Use?: No Immunizations Up To Date Influenza Vaccine Up-to-Date: Yes; Up-to-Date First/Initial COVID19 Vaccinat: 2020 Second COVID19 Vaccination Gerber: 2020 Third COVID19 Vaccination Date: 2020 COVID19 Vaccine [employer] And [employer] Director: MODERNA Seasonal Allergies Seasonal Allergies: No Past Medical History Surgeries: Yes Gallbladder Respiratory: No Cardiac: No Neurological: No Female Reproductive Disorders: Denies Sexually Transmitted Disease: No HIV/AIDS: No Genitourinary: No Gastrointestinal: No Musculoskeletal: No Endocrine: No HEENT: No Cancer: No Psychosocial: No Integumentary: No Blood Disorders: No Adverse Reaction/Blood Tranf: No Family Medical History No Pertinent Family Hx Physical Exam Vital Signs Vital Signs - First Documented 06/16/21 16:25 Temp 36.4 Pulse 69 Resp 20 B/P (MAP) 136/86 (103) Pulse Ox 100 O2 Delivery Room Air Capillary Refill : Less Than 3 Seconds Height/Weight/BMI Height: 5'2.00" Weight: 182lbs. 0.0oz. 82.739933fm; 33.00 BMI Method: Progress/Results/Core Measures Results/Orders Lab Results Laboratory Tests Test 06/16/21 16:35 06/16/21 18:05 Range/Units White Blood Count 9.1 4.3-11.0 10^3/uL Red Blood Count 4.34 3.80-5.11 10^6/uL Hemoglobin 13.1 11.5-16.0 g/dL Hematocrit 40 35-52 % Mean Corpuscular Volume 93 80-99 fL Mean Corpuscular Hemoglobin 30 25-34 pg Mean Corpuscular Hemoglobin Concent 33 32-36 g/dL Red Cell Distribution Width 12.7 10.0-14.5 % Platelet Count 255 130-400 10^3/uL Mean Platelet Volume 11.6 9.0-12.2 fL Immature Granulocyte % (Auto) 0 % Neutrophils (%) (Auto) 56 42-75 % Lymphocytes (%) (Auto) 34 12-44 % Monocytes (%) (Auto) 8 0-12 % Eosinophils (%) (Auto) 1 0-10 % Basophils (%) (Auto) 1 0-10 % Neutrophils # (Auto) 5.1 1.8-7.8 10^3/uL Lymphocytes # (Auto) 3.1 1.0-4.0 10^3/uL Monocytes # (Auto) 0.7 0.0-1.0 10^3/uL Eosinophils # (Auto) 0.1 0.0-0.3 10^3/uL Basophils # (Auto) 0.1 0.0-0.1 10^3/uL Immature Granulocyte # (Auto) 0.0 0.0-0.1 10^3/uL Sodium Level 138 135-145 MMOL/L Potassium Level 3.9 3.6-5.0 MMOL/L Chloride Level 103 98-107 MMOL/L Carbon Dioxide Level 22 21-32 MMOL/L Anion Gap 13 5-14 MMOL/L Blood Urea Nitrogen 11 7-18 MG/DL Creatinine 0.65 0.60-1.30 MG/DL Estimat Glomerular Filtration Rate 115 BUN/Creatinine Ratio 17 Glucose Level 93 70-105 MG/DL Calcium Level 10.0 8.5-10.1 MG/DL Corrected Calcium 10.0 8.5-10.1 MG/DL Total Bilirubin 0.2 0.1-1.0 MG/DL Aspartate Amino Transf (AST/SGOT) 22 5-34 U/L Alanine Aminotransferase (ALT/SGPT) 37 0-55 U/L Alkaline Phosphatase 88 40-136 U/L C-Reactive Protein High Sensitivity 0.37 0.00-0.50 MG/DL Total Protein 7.3 6.4-8.2 GM/DL Albumin 4.0 3.2-4.5 GM/DL Serum Test, Qualitative NEGATIVE NEGATIVE Urine Color YELLOW Urine Clarity CLEAR Urine pH 7.0 5-9 Urine Specific Cuervo <=1.005 1.016-1.022 Urine Protein NEGATIVE NEGATIVE Urine Glucose (UA) NEGATIVE NEGATIVE Urine Ketones NEGATIVE NEGATIVE Urine Nitrite NEGATIVE NEGATIVE Urine Bilirubin NEGATIVE NEGATIVE Urine Urobilinogen 0.2 < = 1.0 MG/DL Urine Leukocyte Esterase NEGATIVE NEGATIVE Urine RBC (Auto) TRACE-I H NEGATIVE Urine RBC NONE /HPF Urine WBC NONE /HPF Urine Squamous Epithelial Cells RARE /HPF Urine Crystals NONE /LPF Urine Bacteria NEGATIVE /HPF Urine Casts NONE /LPF Urine Mucus NEGATIVE /LPF Urine Culture Indicated NO My Orders Orders - KAROLINA STARK RUBY SOFTWARE DEVELOPER Ondansetron Injection (Zofran Injectio (06/16/21 16:45) Ketorolac Injection (Toradol Injection) (06/16/21 16:45) Hcg,Qualitative Serum (06/16/21 16:42) Ua Culture If Indicated (06/16/21 16:42) Hs C Reactive Protein (06/16/21 16:42) Cbc With Automated Diff (06/16/21 16:42) Comprehensive Metabolic Panel (06/16/21 16:42) Ct Lumbar Spine Wo (06/16/21 16:50) Ct Abdomen/Pelvis W (06/16/21 17:28) Iohexol Injection (Omnipaque 350 Mg/Ml 1 (06/16/21 17:45) Received Contrast (Hold Metformin- Contr (06/16/21 17:45) Ns (Ivpb) (Sodium Chloride 0.9% Ivpb Bag (06/16/21 17:45) Orphenadrine Inj (Ed Only) (Norflex Inje (06/16/21 18:45) Medications Given in ED Current Medications Medications Dose Ordered Sig/Calin Route Start Time Stop Time Status Last Admin Dose Admin Ketorolac Tromethamine 30 mg ONCE ONCE IVP 06/16/21 16:45 06/16/21 16:46 DC 06/16/21 16:49 30 MG Ondansetron HCl 4 mg ONCE ONCE IVP 06/16/21 16:45 06/16/21 16:46 DC 06/16/21 16:50 4 MG Orphenadrine Citrate 30 mg ONCE ONCE IVP 06/16/21 18:45 06/16/21 18:49 DC 06/16/21 18:44 30 MG Vital Signs/I&O 06/16/21 16:25 Temp 36.4 Pulse 69 Resp 20 B/P (MAP) 136/86 (103) Pulse Ox 100 O2 Delivery Room Air Blood Pressure Mean: 103 Departure Impression Primary Impression: Abdominal pain Disposition: HOME, SELF-CARE Condition: Improved Departure-Patient Inst. Decision time for Depature: 19:05 Referrals: [facility] (PCP/Family) Primary Care Physician Patient Instructions: Abdominal Pain, Adult ED Add. Discharge Instructions: Plan: 1. Follow up with your doctor on Friday. Call to schedule appointment. 2. Take Tylenol or Ibuprofen as needed for pain. 3. Your lab work and CT scans were normal, however if your symptoms worsen please return to the emergency department for any new, concerning, or worsening symptoms. All discharge instructions reviewed with patient and/or family. Voiced underst anding. KAROLINA STARK APRN Jun 16, 2021 16:55
--- NOTE | 2021-06-16 17:12 | Diagnostic Imaging Report ---
EXAMINATION: CT lumbar spine without contrast. TECHNIQUE: Multiple contiguous axial images were obtained through the lumbar spine without the use of intravenous contrast. Sagittal and coronal reformations were then performed. All CT scans use one or more of the following dose optimizing techniques: automated exposure control, MA and/or KvP adjustment based on patient size and exam type or iterative reconstruction. HISTORY: Back pain. COMPARISON: None available. FINDINGS: The alignment of the lumbar spine is normal. Vertebral body heights are normal and no fracture is seen. Facet joints are normal. Disc heights are normal. There is no spinal canal stenosis. Limited views of the abdomen and pelvis show no soft tissue abnormality. The aorta is normal. IMPRESSION: No lumbar spine fracture. Dictated by: Dictated on workstation # [id number]
[2021-06-16 17:15] LABS: BASOPHILS # (AUTO) 0.1 10^3/uL (0.0-0.1); BASOPHILS % (AUTO) 1 % (0-10); EOSINOPHILS # (AUTO) 0.1 10^3/uL (0.0-0.3); EOSINOPHILS % (AUTO) 1 % (0-10); HEMATOCRIT 40 % (35-52); HEMOGLOBIN 13.1 g/dL (11.5-16.0); LYMPHOCYTES # (AUTO) 3.1 10^3/uL (1.0-4.0); LYMPHOCYTES % (AUTO) 34 % (12-44); MEAN CORPUSCULAR HEMOGLOBIN 30 pg (25-34); MEAN CORPUSCULAR HGB CONC 33 g/dL (32-36); MEAN CORPUSCULAR VOLUME 93 fL (80-99); MEAN PLATELET VOLUME 11.6 fL (9.0-12.2); MONOCYTES # (AUTO) 0.7 10^3/uL (0.0-1.0); MONOCYTES % (AUTO) 8 % (0-12); NEUTROPHILS # (AUTO) 5.1 10^3/uL (1.8-7.8); NEUTROPHILS % (AUTO) 56 % (42-75); PLATELET COUNT 255 10^3/uL (130-400); WHITE BLOOD COUNT 9.1 10^3/uL (4.3-11.0)
[2021-06-16 17:28] LABS: POTASSIUM 3.9 MMOL/L (3.6-5.0)
[2021-06-16 17:31] LABS: TOTAL PROTEIN 7.3 GM/DL (6.4-8.2)
[2021-06-16 17:32] LABS: BILIRUBIN,TOTAL 0.2 MG/DL (0.1-1.0)
[2021-06-16 17:34] LABS: CREATININE SERUM 0.65 MG/DL (0.60-1.30)
[2021-06-16] MEDS ORDERED: HOLD METFORMIN - RECEIVED CONTRAST 20 ML VIAL IV SCH (17:45)
[2021-06-16] MEDS ORDERED: NS 100 ML (IVPB) BAG IV ONE (17:45)
[2021-06-16] MEDS ORDERED: IOHEXOL 350 MG/ML 100 ML (OMNIPAQUE 350) VIAL IV ONE (17:45)
--- NOTE | 2021-06-16 18:02 | Diagnostic Imaging Report ---
EXAMINATION: CT abdomen and pelvis with intravenous contrast. TECHNIQUE: Multiple contiguous axial images were obtained through the abdomen and pelvis after the uneventful administration of intravenous contrast. All CT scans use one or more of the following dose optimizing techniques: automated exposure control, MA and/or KvP adjustment based on patient size and exam type or iterative reconstruction. HISTORY: Suprapubic abdominal pain COMPARISON: None available. FINDINGS: Limited views of the lower thorax are unremarkable. The liver is normal without focal lesion. There is pneumobilia, presumably related to prior sphincterotomy. No biliary ductal dilation. Gallbladder is absent. Pancreas is normal. Spleen is normal. Adrenal glands are normal. The kidneys are normal. There is no hydronephrosis. Urinary bladder is normal. Bowel is normal in caliber without obstruction or inflammation. No free fluid or air. No abdominal or pelvic lymphadenopathy. Aorta is normal in caliber without aneurysm. There are no suspicious osseus lesions. IMPRESSION: No acute abnormality in the abdomen or pelvis. Dictated by: Dictated on workstation # [id number]
[2021-06-16 18:24] LABS: BILIRUBIN,URINE NEGATIVE (NEGATIVE); CLARITY,URINE CLEAR; COLOR,URINE YELLOW; GLUCOSE, URINE (UA) NEGATIVE (NEGATIVE); KETONES,URINE NEGATIVE (NEGATIVE); LEUKOCYTE ESTERASE ,URINE NEGATIVE (NEGATIVE); NITRITE,URINE NEGATIVE (NEGATIVE); PROTEIN,URINE NEGATIVE (NEGATIVE)
[2021-06-16 18:32] LABS: BACTERIA,URINE NEGATIVE /HPF; SQUAMOUS EPITHELIAL CELL,UR RARE /HPF
[2021-06-16] MEDS ORDERED: ORPHENADRINE 60 MG/2 ML (NORFLEX) AMP (ED ONLY) IVP ONE (18:45)
[2021-06-16 19:13] VITALS: BP 128/78
== END 2021-06-16 19:13 | disposition home or self-care (01) ==
LOC: EDUNIT# 16:16 → ER 16:17
DX: R10.30 Lower abdominal pain, unspecified (principal)
CPT/HCPCS: 36415; 72131; 74177; 80053; 81000; 84703; 85025; 86141

== ENCOUNTER 2021-10-31 23:25 | Emergency (ER) | payer OTHER ==
[~2021-10-31] VITALS: Ht 152.4 cm; Wt 83.0 kg
[2021-11-01] MEDS ORDERED: methylPREDNISolone 125 MG (Solu-MEDROL) VIAL ONE (01:05)
[2021-11-01] MEDS ORDERED: diphenhydrAMINE 50 MG/ML INJ (BENADRYL) ONE (01:05)
[2021-11-01] MEDS ORDERED: FAMOTIDINE 20 MG (PEPCID) TABLET ONE (01:05)
[2021-11-01] MEDS ORDERED: KETOROLAC 30 MG/ML VIAL ONE (01:05)
[2021-11-01] MEDS ORDERED: CLINDAMYCIN 150 MG (CLEOCIN) CAP PO STA (02:07)
[2021-11-01] MEDS ORDERED: HYDROcodone/APAP 5 MG/325 MG (LORTAB) TAB PO ONE (02:15)
[2021-11-01 03:39] LABS: INR 0.9 (0.8-1.4); POTASSIUM 3.7 MMOL/L (3.6-5.0); PROTHROMBIN TIME PATIENT 12.9 SEC (12.2-14.7)
[2021-11-01 03:40] LABS: CREATININE SERUM 0.68 MG/DL (0.60-1.30)
[2021-11-01 03:41] LABS: BILIRUBIN,TOTAL 0.8 MG/DL (0.1-1.0); CALCIUM 9.3 MG/DL (8.5-10.1)
[2021-11-01 03:42] LABS: BASOPHILS % (AUTO) 0 % (0-10); EOSINOPHILS % (AUTO) 2 % (0-10); HEMATOCRIT 41 % (35-52); HEMOGLOBIN 13.3 g/dL (11.5-16.0); LYMPHOCYTES % (AUTO) 8 % (12-44); MEAN CORPUSCULAR HEMOGLOBIN 30 pg (25-34); MEAN CORPUSCULAR HGB CONC 33 g/dL (32-36); MEAN CORPUSCULAR VOLUME 92 fL (80-99); MEAN PLATELET VOLUME 10.9 fL (9.0-12.2); MONOCYTES % (AUTO) 3 % (0-12); NEUTROPHILS % (AUTO) 86 % (42-75); PLATELET COUNT 255 10^3/uL (130-400); WHITE BLOOD COUNT 9.4 10^3/uL (4.3-11.0)
[2021-11-01 03:43] LABS: BAND NEUTROPHILS 1 %; EOSINOPHILS # (AUTO) 0.2 10^3/uL (0.0-0.3); EOSINOPHILS % (MANUAL) 4 %; LYMPHOCYTES # (AUTO) 0.8 X 10^3 (1.0-4.0); LYMPHOCYTES % (MANUAL) 7 %; MONOCYTES # (AUTO) 0.3 X 10^3 (0.0-1.0); MONOCYTES % (MANUAL) 1 %; NEUTROPHILS # (AUTO) 8.1 X 10^3 (1.8-7.8); NEUTROPHILS % (MANUAL) 87 %
[2021-11-01 03:44] LABS: PLATELET CLUMPS SLIGHT; RBC MORPH NORMAL
[2021-11-01] MEDS ORDERED: CLIN-144 PO (03:55)
[2021-11-01] MEDS ORDERED: FAMO-119 PO (03:55)
[2021-11-01] MEDS ORDERED: ACHD5005 PO (03:55)
--- NOTE | 2021-11-01 03:55 | ED General ---
General Chief Complaint: Bite-Animal/Human/Insect Stated Complaint: RT LEG PAIN,POSS BUG BITE,RASH,FEVER Nursing Triage Note: c/o possible spider bite to right leg approx. 0800 10/31/21. reports pain progressively worse throughout the day. c/o facial swelling/burning tonight. Source of Information: Patient, Family Exam Limitations: Language Barrier History of Present Illness Date Seen by Provider: Nov 01, 2021 Time Seen by Provider: 00:55 Initial Comments This 40-year-old young lady presents to the emergency room with an apparent bite on her right lateral ankle. She felt something sharp when she put on her pants around 830 this morning. Pain intensified throughout the day. She reports pain at a 10 at its maximum. She has also since developed rash, itching, and swelling of the face, chest, and extremities. She has not taken any medications for the symptoms yet. The area affected on the ankle has a dusky subcentimeter center with mild erythema extending a few centimeters beyond that. It is tender to the touch. No fever. Rash is pruritic. She did not see what caused the lesion. Nigerien is not patient's primary language. She elects to use her as an per diem interpreter. Allergies and Home Medications Allergies Coded Allergies: Penicillins (Verified Allergy, Unknown, 07/12/20) Patient Home Medication List Home Medication List Reviewed: Yes Clindamycin HCl (Clindamycin HCl) 300 Mg Capsule, 300 MG PO TID Prescribed by: HAROON BREWSTER on 11/01/21 0355 Dexamethasone (Dexamethasone) 6 Mg Tablet, 6 MG PO DAILY Prescribed by: QUYNH CHAUHAN on 03/05/20 1234 Famotidine (Pepcid) 20 Mg Tablet, 20 MG PO BID Prescribed by: HAROON BREWSTER on 11/01/21 0355 Hydrocodone/Acetaminophen (Hydrocodone-Acetamin 5-325 mg) 5 Mg-325 Mg Tablet, 1 TAB PO Q4H PRN for PAIN-BREAKTHROUGH Prescribed by: HAROON BREWSTER on 11/01/21 0357 Review of Systems Review of Systems Constitutional: no symptoms reported EENTM: see HPI Respiratory: no symptoms reported Cardiovascular: no symptoms reported Gastrointestinal: no symptoms reported Genitourinary: no symptoms reported : No Musculoskeletal: no symptoms reported Skin: see HPI Psychiatric/Neurological: No Symptoms Reported Hematologic/Lymphatic: No Symptoms Reported Immunological/Allergic: see HPI Past Hlffnht-Tbxlig-Vnmcdk Hx Patient Social History Tobacco Use?: No Substance use?: No Alcohol Use?: Yes Alcohol Frequency: Rarely Pt feels they are or have been: No Immunizations Up To Date First/Initial COVID19 Vaccinat: 2020 Second COVID19 Vaccination Gerber: 2020 Third COVID19 Vaccination Date: 2020 Seasonal Allergies Seasonal Allergies: No Past Medical History Surgery/Hospitalization HX: depression Surgeries: Yes Gallbladder Respiratory: No Cardiac: No Neurological: No Female Reproductive Disorders: Denies Sexually Transmitted Disease: No HIV/AIDS: No Genitourinary: No Gastrointestinal: No Musculoskeletal: Yes (Chronic shoulder pain) Endocrine: No HEENT: No Cancer: No Psychosocial: Yes Depression Integumentary: No Blood Disorders: No Adverse Reaction/Blood Tranf: No Family Medical History No Pertinent Family Hx Physical Exam Vital Signs Vital Signs - First Documented 10/31/21 23:40 Temp 37.4 Pulse 90 Resp 14 B/P (MAP) 137/76 (96) Pulse Ox 100 O2 Delivery Room Air Capillary Refill : Less Than 3 Seconds Height, Weight, BMI Height: 5'2.00" Weight: 182lbs. 0.0oz. 82.958276yc; 35.00 BMI Method: General Appearance: No Apparent Distress, WD/WN HEENT: PERRL/EOMI, Pharynx Normal, Other (Swelling of the face, especially the periorbital region.) Neck: Normal Inspection Respiratory: Lungs Clear, Normal Breath Sounds, No Accessory Muscle Use Cardiovascular: Regular Rate, Rhythm, No Edema, No Murmur Extremity: No Pedal Edema, Other (See skin exam below) Neurologic/Psychiatric: Alert, Oriented x3, No Motor/Sensory Deficits, Normal Mood/Affect Skin: Rash (Mildly erythematous and mildly raised pruritic rash on the extremities, chest, and face. There is a dusky subcentimeter lesion on the right lateral ankle with surrounding painful and tender erythema extending a few centimeters beyond that. This has the typical appearance of a spider bite.) Progress/Results/Core Measures Suspected Sepsis SIRS Temperature: Pulse: 90 Respiratory Rate: 14 Laboratory Tests 11/01/21 01:09: White Blood Count 9.4 Blood Pressure 137 /76 Mean: 96 Laboratory Tests 11/01/21 01:09: Creatinine 0.68, INR Comment 0.9, Platelet Count 255, Total Bilirubin 0.8 Results/Orders Lab Results Laboratory Tests Test 11/01/21 01:09 Range/Units White Blood Count 9.4 4.3-11.0 10^3/uL Red Blood Count 4.39 3.80-5.11 10^6/uL Hemoglobin 13.3 11.5-16.0 g/dL Hematocrit 41 35-52 % Mean Corpuscular Volume 92 80-99 fL Mean Corpuscular Hemoglobin 30 25-34 pg Mean Corpuscular Hemoglobin Concent 33 32-36 g/dL Red Cell Distribution Width 12.7 10.0-14.5 % Platelet Count 255 130-400 10^3/uL Mean Platelet Volume 10.9 9.0-12.2 fL Immature Granulocyte % (Auto) 0 % Neutrophils (%) (Auto) 86 H 42-75 % Lymphocytes (%) (Auto) 8 L 12-44 % Monocytes (%) (Auto) 3 0-12 % Eosinophils (%) (Auto) 2 0-10 % Basophils (%) (Auto) 0 0-10 % Neutrophils # (Auto) 8.1 H 1.8-7.8 X 10^3 Lymphocytes # (Auto) 0.8 L 1.0-4.0 X 10^3 Monocytes # (Auto) 0.3 0.0-1.0 X 10^3 Eosinophils # (Auto) 0.2 0.0-0.3 10^3/uL Basophils # (Auto) 0.0 0.0-0.1 10^3/uL Immature Granulocyte # (Auto) 0.0 0.0-0.1 10^3/uL Neutrophils % (Manual) 87 % Lymphocytes % (Manual) 7 % Monocytes % (Manual) 1 % Eosinophils % (Manual) 4 % Band Neutrophils 1 % Clumped Platelets SLIGHT Blood Morphology Comment NORMAL Prothrombin Time 12.9 12.2-14.7 SEC INR Comment 0.9 0.8-1.4 Sodium Level 137 135-145 MMOL/L Potassium Level 3.7 3.6-5.0 MMOL/L Chloride Level 104 98-107 MMOL/L Carbon Dioxide Level 24 21-32 MMOL/L Anion Gap 9 5-14 MMOL/L Blood Urea Nitrogen 8 7-18 MG/DL Creatinine 0.68 0.60-1.30 MG/DL Estimat Glomerular Filtration Rate 114 BUN/Creatinine Ratio 12 Glucose Level 98 70-105 MG/DL Calcium Level 9.3 8.5-10.1 MG/DL Corrected Calcium 9.3 8.5-10.1 MG/DL Total Bilirubin 0.8 0.1-1.0 MG/DL Aspartate Amino Transf (AST/SGOT) 16 5-34 U/L Alanine Aminotransferase (ALT/SGPT) 24 0-55 U/L Alkaline Phosphatase 79 40-136 U/L Total Protein 7.0 6.4-8.2 GM/DL Albumin 4.0 3.2-4.5 GM/DL Serum Test, Qualitative NEGATIVE NEGATIVE My Orders Orders - HAROON COCHRAN MD Diphenhydramine Injection (Benadryl Inje (11/01/21 01:05) Famotidine Tablet (Pepcid Tablet) (11/01/21 01:05) Ketorolac Injection (Toradol Injection) (11/01/21 01:05) Methylprednisolone Sod Succ (Solu-Medrol (11/01/21 01:05) Hydrocodone/Apap 5/325 Tablet (Lortab 5 (11/01/21 02:15) Clindamycin Capsule (Cleocin Capsule) (11/01/21 02:07) Cbc With Automated Diff (11/01/21 01:09) Comprehensive Metabolic Panel (11/01/21 01:09) Protime With Inr (11/01/21 01:09) Hcg,Qualitative Serum (11/01/21 01:09) Manual Differential (11/01/21 01:09) Medications Given in ED Vital Signs/I&O 10/31/21 11/01/21 23:40 04:04 Temp 37.4 36.3 Pulse 90 77 Resp 14 16 B/P (MAP) 137/76 (96) 118/75 Pulse Ox 100 100 O2 Delivery Room Air Room Air Capillary Refill : Less Than 3 Seconds Blood Pressure Mean: 96 Progress Note : Progress Note By exam of the localized lesion on the right ankle has appearance of a spider bite. Patient appears to have an associated allergic reaction. She improved with IV Benadryl and Solu-Medrol as well as oral Pepcid. Toradol was given for pain. She had significant residual pain which was treated with hydrocodone. Antibiotic prophylaxis was provided with clindamycin. Labs were obtained to rule out significant associated blood dyscrasias, and they were relatively unremarkable. Departure Impression Primary Impression: Spider bite wound Qualified Codes: T63.301A - Toxic effect of unspecified spider venom, accidental (unintentional), initial encounter Additional Impression: Allergic reaction to spider bite Qualified Codes: T63.301A - Toxic effect of unspecified spider venom, accidental (unintentional), initial encounter Disposition: HOME, SELF-CARE Condition: Improved Departure-Patient Inst. Decision time for Depature: 03:51 Referrals: [facility] (PCP/Family) Primary Care Physician Patient Instructions: Allergic Reaction ED, Spider Bites Add. Discharge Instructions: Take Pepcid (famotidine) twice daily for the next week. Keep Benadryl (diphenhydramine) on hand and take 50 mg by mouth every 4 hours as needed for breakthrough allergy symptoms of itching, rash, swelling, etc. If reaction causes swelling of the tongue or throat, or if you feel short of breath, please take the Benadryl and return to the emergency room immediately or call 911. The bite may become dark or even black and grow in size considerably over the next 1 to 2 weeks. You may return to the ER at anytime for a wound check if you have concerns about the wounds appearance. Generally new skin will grow in the wound as it heals over a period of several weeks. You may take ibuprofen up to 600 mg every 6 hours as needed for pain. Add hydrocodone as prescribed for pain not controlled by ibuprofen. Call your doctor with questions or concerns. Return to the ER if you have significant worsening of symptoms despite following these instructions. All discharge instructions reviewed with patient and/or family. Voiced understanding. Scripts Hydrocodone/Acetaminophen (Hydrocodone-Acetamin 5-325 mg) 5 Mg-325 Mg Tablet 1 TAB PO Q4H PRN for PAIN-BREAKTHROUGH, #12 TAB Prov: HAROON COCHRAN MD 11/01/21 Famotidine (Pepcid) 20 Mg Tablet 20 MG PO BID, #14 TAB Prov: HAROON COCHRAN MD 11/01/21 Clindamycin HCl (Clindamycin HCl) 300 Mg Capsule 300 MG PO TID, #20 CAP Prov: HAROON COCHRAN MD 11/01/21 Work/School Note: Work Release Form Date Seen in the Emergency Department: Nov 01, 2021 Return to Work: Nov 02, 2021 Restrictions: No Restrictions HAROON COCHRAN MD Nov 01, 2021 03:55
[2021-11-01 04:04] VITALS: BP 118/75
== END 2021-11-01 04:04 | disposition home or self-care (01) ==
LOC: EDUNIT# 23:25 → ER 23:29
DX: T63.301A Toxic effect of unspecified spider venom, accidental (unintentional), initial encounter (principal)
CPT/HCPCS: 36415; 80053; 84703; 85007; 85027; 85610; 99283

== ENCOUNTER 2021-11-05 09:34 | Emergency (ER) | payer OTHER ==
[~2021-11-05] VITALS: Ht 159 cm; Wt 83.0 kg
[~2021-11-05 09:34] MED LIST changes: +ACHD5005 PO; +CLIN-144 PO; +FAMO-119 PO
[2021-11-05] MEDS ORDERED: IBUP-1773 PO (10:07)
[2021-11-05] MEDS ORDERED: ACET-2267 PO (10:07)
[2021-11-05] MEDS ORDERED: OXYC5TAB PO (10:07)
--- NOTE | 2021-11-05 10:07 | ED Lower Extremity ---
General Chief Complaint: Bite-Animal/Human/Insect Stated Complaint: R LEG SPIDER BITE Nursing Triage Note: PT WAS SEEN HERE LAST FRIDAY FOR SAME, SPIDER BITE ON RT LOWER LEG, PT OUT OF PAIN MED, STILL TAKING ABX. HARD TO WALK AND PAINFUL TO THE TOUCH. Source: patient, family, full time staff interpreter Exam Limitations: no limitations History of Present Illness Date Seen by Provider: Nov 05, 2021 Time Seen by Provider: 09:36 Initial Comments 40-year-old female with no pertinent past medical history coming in due to right lower extremity wound. Was seen last Friday with concerns for likely spider bite. Has been on clindamycin and Pepcid. She is here because the pain is worsening and the wound seems like it is worsening as well. The pain is constant, throbbing, better when she received a Toradol shot as an outpatient, worse with touching it. Has not had any redness spreading up her leg or pus coming out of it. She is otherwise denying any other acute complaints such as fever, body aches, chest pain, shortness of breath, abdominal pain, diarrhea, dysuria, hematuria, easy bruising anywhere else, or any other concerns.. LMP was 2 weeks ago. Allergies and Home Medications Allergies Coded Allergies: Penicillins (Verified Allergy, Unknown, 07/12/20) Patient Home Medication List Home Medication List Reviewed: Yes Clindamycin HCl (Clindamycin HCl) 300 Mg Capsule, 300 MG PO TID Prescribed by: HAROON BREWSTER on 11/01/21 035 Dexamethasone (Dexamethasone) 6 Mg Tablet, 6 MG PO DAILY Prescribed by: QUYNH CHAUHAN on 03/05/20 1234 Famotidine (Pepcid) 20 Mg Tablet, 20 MG PO BID Prescribed by: HAROON BREWSTER on 11/01/21 035 Hydrocodone/Acetaminophen (Hydrocodone-Acetamin 5-325 mg) 5 Mg-325 Mg Tablet, 1 TAB PO Q4H PRN for PAIN-BREAKTHROUGH Prescribed by: HAROON BREWSTER on 11/01/21 035 Review of Systems Constitutional: No fever EENTM: No blurred vision Respiratory: no symptoms reported Cardiovascular: no symptoms reported Gastrointestinal: no symptoms reported Genitourinary: no symptoms reported Musculoskeletal: see HPI Skin: see HPI Psychiatric/Neurological: No Symptoms Reported All Other Systems Reviewed Negative Unless Noted: Yes Past Ofjiukh-Edeles-Kskrks Hx Patient Social History Tobacco Use?: No Substance use?: No Alcohol Use?: No Immunizations Up To Date First/Initial COVID19 Vaccinat: 2020 Second COVID19 Vaccination Gerber: 2020 Third COVID19 Vaccination Date: 2020 Seasonal Allergies Seasonal Allergies: No Past Medical History Surgery/Hospitalization HX: depression Surgeries: Yes Gallbladder Respiratory: No Cardiac: No Neurological: No Female Reproductive Disorders: Denies Sexually Transmitted Disease: No HIV/AIDS: No Genitourinary: No Gastrointestinal: No Musculoskeletal: Yes (Chronic shoulder pain) Endocrine: No HEENT: No Cancer: No Psychosocial: Yes Depression Integumentary: No Blood Disorders: No Adverse Reaction/Blood Tranf: No Family Medical History No Pertinent Family Hx Physical Exam Vital Signs Vital Signs - First Documented 11/05/21 09:43 Temp 36.2 Pulse 63 Resp 20 B/P (MAP) 149/99 (116) Pulse Ox 98 O2 Delivery Room Air Capillary Refill : Less Than 3 Seconds Height, Weight, BMI Height: 5'2.00" Weight: 182lbs. 0.0oz. 82.500257jm; 32.00 BMI Method: General Appearance: WD/WN, no apparent distress HEENT: PERRL/EOMI, normal ENT inspection, pharynx normal Neck: non-tender, full range of motion, supple, normal inspection Cardiovascular: regular rate, rhythm, no edema, no murmur Respiratory: chest non-tender, lungs clear, normal breath sounds, no respiratory distress, no accessory muscle use Gastrointestinal: normal bowel sounds, non tender, soft; No distended, No guarding Ankles: right ankle other (Area of shallow discoloration and ulceration to the right lateral [place] distal with some bruising) Neurologic/Tendon: normal sensation, normal motor functions Neurologic/Psychiatric: no motor/sensory deficits, alert, normal mood/affect Skin: normal color, warm/dry Lymphatic: no adenopathy Progress/Results/Core Measures Results/Orders Vital Signs/I&O 11/05/21 09:43 Temp 36.2 Pulse 63 Resp 20 B/P (MAP) 149/99 (116) Pulse Ox 98 O2 Delivery Room Air Blood Pressure Mean: 116 Progress Progress Note : Progress Note 40yoF with above history coming in for a wound check. The wound looks consistent with a brown recluse spider bite. It does not look infected over the top of it, and she is on clindamycin as well. I discussed with the patient supportive care and we will need to wait and see what the wound does before they debrided. I will have her follow-up with the surgeon here. Given oxycodone here and then a prescription for pain medicine since she is in so much pain. She is showing no signs of systemic loxoscelism. I believe she is stable for discharge with outpatient follow-up. She was sent home with strict return precautions. Departure Impression Primary Impression: Spider bite wound Qualified Codes: T63.301A - Toxic effect of unspecified spider venom, accidental (unintentional), initial encounter Additional Impression: Leg pain Qualified Codes: M79.604 - Pain in right leg Disposition: 01 HOME, SELF-CARE Condition: Stable Departure-Patient Inst. Decision time for Depature: 10:05 Referrals: [facility] [place] (PCP/Family) Primary Care Physician SANTI DAVIS DO Patient Instructions: Spider Bites Add. Discharge Instructions: Please follow-up with Dr. Davis who is a surgeon here in the [facility]. He can follow the wound and help decide if surgery ever needs to happen. Take ibuprofen and Tylenol, take the oxycodone if needed on top of that. Scripts Oxycodone HCl (Oxycodone HCl) 5 Mg Tablet 5 MG PO Q6H PRN for PAIN-SEVERE (8-10) for 3 Days, #12 TAB Prov: JEWEL FALL MD 11/05/21 Acetaminophen (Tylenol Extra Strength) 500 Mg Tablet 1000 MG PO Q8H for 7 Days, #56 TAB Prov: JEWEL FALL MD 11/05/21 Ibuprofen (Ibuprofen) 600 Mg Tablet 600 MG PO Q6H PRN for PAIN-MILD for 7 Days, #28 TAB Prov: JEWEL FALL MD 11/05/21 Work/School Note: Work Release Form Date Seen in the Emergency Department: Nov 05, 2021 Return to Work: Nov 06, 2021 Restrictions: No Restrictions JEWEL FALL MD Nov 05, 2021 10:07
[2021-11-05] MEDS ORDERED: ACETAMINOPHEN 500 MG TAB (TYLENOL) PO ONE (10:15)
[2021-11-05 10:18] VITALS: BP 149/99
== END 2021-11-05 10:18 | disposition home or self-care (01) ==
LOC: EDUNIT# 09:34 → ER 09:35
DX: T63.301A Toxic effect of unspecified spider venom, accidental (unintentional), initial encounter (principal)
CPT/HCPCS: 99283